=== PATIENT | female | born 1955 | race American Indian/Alaskan Native ===

== ENCOUNTER 2019-09-30 15:06 | Emergency (ER) | payer MEDICARE ==
--- NOTE | 2019-09-30 15:27 | Emergency Department Report ---
Blank Doc - Documentation Documentation: 64-year-old female that presents with a trip and fall with headache, facial ab rasions, and left hand pain. Denies any LOC. Denies any neck pain or back pain. This initial assessment/diagnostic orders/clinical plan/treatment(s) is/are subject to change based on patient's health status, clinical progression and re- assessment by fellow clinical providers in the ED. Further treatment and workup at subsequent clinical providers discretion. Patient/guardians urged not to tera pe from the ED as their condition may be serious if not clinically assessed and managed. Initial orders include: 1- Patient sent to [facility] for further evaluation and treatment 2- ct head/face 3- xrays
--- NOTE | 2019-09-30 16:09 | XRay Report ---
LEFT HAND 3 VIEWS INDICATION / CLINICAL INFORMATION: pain s/p fall. COMPARISON: None available. FINDINGS: Cystic change is seen in the lunate. There is advanced degenerative change in the index finger metaca rpophalangeal joint. No other significant skeletal abnormality Signer Name: Les Roblero MD FACPaul Signed: 09/30/2019 4:04 PM Workstation Name: [id number]
[2019-09-30 16:12] VITALS: BP 168/74
--- NOTE | 2019-09-30 16:32 | Cat Scan Report ---
NONENHANCED CT SCAN OF THE HEAD: INDICATION / CLINICAL INFORMATION: 64 years Female; STATUS-POST FALL, NOW WITH HEAD PAIN. NO L.O.C.. TECHNIQUE: Routine CT head without contrast. All CT scans at this location are performed using CT dos e reduction for ALARA by means of automated exposure control. COMPARISON: None. FINDINGS: BRAIN / INTRACRANIAL CONTENTS: No intracranial sequela from the trauma; no scalp hematoma; no air-flu id level from the trauma in the paranasal sinuses: No acute hemorrhage, mass effect, midline shift, hydrocephalus, or acute, large territorial infarct. No chronic infarct or focal atrophy. Mild to moderate cortical involution; periventricular and deep hemispheric low attenuation white matter areas probably due to chronic small vessel disease CRANIOCERVICAL JUNCTION: No significant abnormality. ORBITS: No significant abnormality of visualized orbits. SINUSES / MASTOIDS: Chronic inflammatory changes with mucosal thickening and fluid accumulation in th e left sphenoid sinus ADDITIONAL FINDINGS: None. IMPRESSION: No intracranial sequela from the trauma. Signer Name: Florian Newton MD Signed: 09/30/2019 4:27 PM Workstation Name: [id number]
--- NOTE | 2019-09-30 16:36 | Cat Scan Report ---
CT MAXILLOFACIAL WITHOUT CONTRAST INDICATION / CLINICAL INFORMATION: Trauma. Patient fell sustaining facial injury. Facial pain. TECHNIQUE: All CT scans at this location are performed using CT dose reduction for ALARA by means of automated e xposure control. COMPARISON: None available. FINDINGS: FACIAL BONES: No fracture or other significant abnormality. PARANASAL SINUSES: Mucosal thickening is present in the left sphenoid sinus where an air-fluid level is identified. Paranasal sinuses are otherwise free from inflammatory mucosal disease. Frontal sinuses did not devel op in this individual. NASAL CAVITY: No abnormality. ORBITS: No significant abnormality. Temporal bones: Mastoid air cells are normally and symmetrically pneumatized as are the middle ear ca vities.. VISUALIZED INTRACRANIAL STRUCTURES: No significant abnormality. Additional abnormality: Periapical cyst is observed at the root of the left incisor of the maxilla. IMPRESSION: 1. No indication of fracture or other osseous abnormality. 2. Inflammatory changes are present in the left sphenoid sinus. Signer Name: Timbo Gaston MD Signed: 09/30/2019 4:31 PM Workstation Name: [id number]
--- NOTE | 2019-09-30 17:37 | Emergency Department Report ---
ED Fall HPI - General Chief Complaint: Fall Stated Complaint: GROUND LEVEL FALL Time Seen by Provider: 09/30/19 15:26 Source: patient Mode of arrival: Wheelchair Limitations: No Limitations - History of Present Illness Initial Comments: This is a 64-year-old female who presents to the emergency room with a laceration to the left upper eyebrow, left-sided facial pain, and left hand pain status post fall. Patient states she was walking in the shop and pleasant did not see speedball when she tripped and fell. Patient states she fell with her left hand stretched out and her legs went behind her. She denies loss of consciousness, nausea, vomiting, visual changes, numbness or tingling, radiating pain, or bruising. MD Complaint: fall -: This afternoon Fall From: standing When Fall Occurred: 1-3 hours [employer] [employer] [employer] Fall Witnessed: yes, by bystander Place Fall Occurred: street Loss of Consciousness: none Prolonged Down Time?: no Symptoms Prior to Fall: none Location: face Location - Extremities: Left: Hand Severity: severe Severity scale (0 -10): 9 Quality: aching Context: tripped/slipped Associated Symptoms: denies - Related Data Allergies Allergy/AdvReac Type Severity Reaction Status Date / Time No Known Allergies Allergy Unverified 09/30/19 16:12 ED Review of Systems ROS: Stated complaint: GROUND LEVEL FALL Other details as noted in HPI Constitutional: denies: chills, fever Respiratory: denies: cough, shortness of breath, wheezing Cardiovascular: denies: chest pain, palpitations Gastrointestinal: denies: abdominal pain, nausea, diarrhea Musculoskeletal: arthralgia (Left hand pain). denies: back pain, joint swelling Skin: lesions (Laceration to left eyebrow). denies: rash Neurological: denies: headache, weakness, paresthesias Psychiatric: denies: anxiety, depression ED Past Medical Hx - Past Medical History Previous Medical History?: No - Surgical History Past Surgical History?: No - Social History Smoking Status: Never Smoker Substance Use Type: None ED Physical Exam - General Limitations: No Limitations General appearance: alert, in no apparent distress - ENT ENT exam: Present: mucous membranes moist - Neck Neck exam: Present: normal inspection - Respiratory Respiratory exam: Present: normal lung sounds bilaterally. Absent: respiratory distress - Cardiovascular Cardiovascular Exam: Present: regular rate, normal rhythm. Absent: systolic murmur, diastolic murmur, rubs, gallop - GI/Abdominal GI/Abdominal exam: Present: soft, normal bowel sounds. Absent: distended, tenderness, guarding, rebound, rigid - Extremities Exam Extremities exam: Present: normal inspection - Expanded Upper Extremity Exam Left Shoulder Exam: Present: normal inspection, full ROM Upper Arm exam: Present: normal inspection, full ROM Elbow exam: Present: normal inspection, full ROM Forearm Wrist exam: Present: normal inspection, full ROM Hand Wrist exam: Present: full ROM (Pain with FROM), tenderness (Tenderness and swelling over fourth and fifth metacarpal), swelling. Absent: abrasion, laceration, ecchymosis, deformity, crepidus, dislocation, erythema, amputation, nail avulsion, subungual hematoma Neuro motor exam: Present: wrist extension intact, thumb opposition intact, thumb IP flexion intact, thumb adduction intact, fingers 2-5 abduction intact Neurosensory exam: Present: radial nerve intact, ulnar nerve intact, median nerve intact Vascular: Present: normal capillary refill (Brisk), radial pulse (2+) - Neurological Exam Neurological exam: Present: alert, oriented X3, normal gait - Psychiatric Psychiatric exam: Present: normal affect, normal mood - Skin Skin exam: Present: warm, dry, normal color, other (1.5 cm laceration to left eyebrow into epidermis dermis, TTP, no drainage, mild swelling). Absent: intact, rash ED Course Vital Signs 09/30/19 16:10 Temperature 97.8 F Pulse Rate 88 Respiratory 18 Rate Blood Pressure 168/74 O2 Sat by Pulse 100 Oximetry ED Medical Decision Making - Radiology Data Radiology results: report reviewed CT MAXILLOFACIAL WITHOUT CONTRAST INDICATION / CLINICAL INFORMATION: Trauma. Patient fell sustaining facial injury. Facial pain. TECHNIQUE: All CT scans at this location are performed using CT dose reduction for ALARA by means of automated exposure control. COMPARISON: None available. FINDINGS: FACIAL BONES: No fracture or other significant abnormality. PARANASAL SINUSES: Mucosal thickening is present in the left sphenoid sinus where an air-fluid level is identified. Paranasal sinuses are otherwise free from inflammatory mucosal disease. Frontal sinuses did not develop in this individual. NASAL CAVITY: No abnormality. ORBITS: No significant abnormality. Temporal bones: Mastoid air cells are normally and symmetrically pneumatized as are the middle ear cavities.. VISUALIZED INTRACRANIAL STRUCTURES: No significant abnormality. Additional abnormality: Periapical cyst is observed at the root of the left incisor of the maxilla. IMPRESSION: 1. No indication of fracture or other osseous abnormality. 2. Inflammatory changes are present in the left sphenoid sinus. NONENHANCED CT SCAN OF THE HEAD: INDICATION / CLINICAL INFORMATION: 64 years Female; STATUS-POST FALL, NOW WITH HEAD PAIN. NO L.O.C.. TECHNIQUE: Routine CT head without contrast. All CT scans at this location are performed using CT dose reduction for ALARA by means of automated exposure control. COMPARISON: None. FINDINGS: BRAIN / INTRACRANIAL CONTENTS: No intracranial sequela from the trauma; no scalp hematoma; no air- fluid level from the trauma in the paranasal sinuses: No acute hemorrhage, mass effect, midline shift, hydrocephalus, or acute, large territorial infarct. No chronic infarct or focal atrophy. Mild to moderate cortical involution; periventricular and deep hemispheric low attenuation white matter areas probably due to chronic small vessel disease CRANIOCERVICAL JUNCTION: No significant abnormality. ORBITS: No significant abnormality of visualized orbits. SINUSES / MASTOIDS: Chronic inflammatory changes with mucosal thickening and fluid accumulation in the left sphenoid sinus ADDITIONAL FINDINGS: None. IMPRESSION: No intracranial sequela from the trauma. LEFT HAND 3 VIEWS INDICATION / CLINICAL INFORMATION: pain s/p fall. COMPARISON: None available. FINDINGS: Cystic change is seen in the lunate. There is advanced degenerative change in the index finger metacarpophalangeal joint. No other significant skeletal abnormality - Medical Decision Making 64-year-old female complaining of laceration to left eyebrow and left hand pain status post fall. Patient was examined by me. Patient is nontoxic appearing and stable. Vitals are normal. Obtained CT of maxillofacial, CT of head, and x-ray of left hand. CT of maxillofacial findings of no indication of fracture or other osseous abnormality. Inflammatory changes are present in the left sphenoid sinus. No intracranial sequela from the trauma. Left hand Cystic change is seen in the lunate. There is advanced degenerative change in the index finger metacarpophalangeal joint. No other significant skeletal abnormality. Given history, exam, and work-up, there is low suspicion for skull fracture, spine fracture, or other acute spinal syndrome. No abdominal or midline spinal tenderness on exam for signs of trauma. Laceration cleaned with normal saline and triple antibiotic ointment applied. A wrist brace was applied to left upper extremity. Patient instructed of symptoms being self-limiting. Instructed to follow-up with her primary care doctor in 2 to 3 days. Given strict return her precautions for delayed possible symptoms. Patient discharged with prompt follow-up with primary care physician. Critical care attestation.: If time is entered above; I have spent that time in minutes in the direct care of this critically ill patient, excluding procedure time. ED Disposition Clinical Impression: Pain in left hand Fall Qualifiers: Encounter type: initial encounter Qualified Code(s): W19.XXXA - Unspecified fall, initial encounter Laceration of left eyebrow without complication Qualifiers: Encounter type: initial encounter Qualified Code(s): S01.112A - Laceration without foreign body of left eyelid and periocular area, initial encounter Sprain of hand, left Qualifiers: Encounter type: initial encounter Qualified Code(s): S63.92XA - Sprain of unspecified part of left wrist and hand, initial encounter Disposition: DC- TO HOME OR SELFCARE Is pt being admited?: No Condition: Stable Instructions: Hand Sprain (ED), Laceration (ED) Additional Instructions: Keep laceration clean with soap and water. Apply ice to left side of face and hand to decrease swelling. Take Tylenol or ibuprofen for pain every 6-8 hours as needed. Follow-up with your primary care doctor. Referrals: MARTÍN ALEX DO [Staff Physician] - 3-5 Days SUDHA FLORES MD [Staff Physician] - 3-5 Days Time of Disposition: 18:34
[2019-09-30] MEDS ORDERED: NEOMY 3.5 MG/BACIT 400 UNITS/POLY B 5000 UNITS/GM OINT PACKET TP ONE (17:51)
== END 2019-09-30 18:41 | disposition home or self-care (01) ==
LOC: ED 15:06
DX: S63.92XA Sprain of unspecified part of left wrist and hand, initial encounter (principal); S01.112A Laceration without foreign body of left eyelid and periocular area, initial encounter; W01.0XXA Fall on same level from slipping, tripping and stumbling without subsequent striking against object, initial encounter; Y93.89 Activity, other specified; Y92.513 Shop (commercial) as the place of occurrence of the external cause; Y99.8 Other external cause status
CPT/HCPCS: 70450; 70486; A6250

== ENCOUNTER 2020-01-01 11:45 | Outpatient (CLI) | payer BC, MEDICARE ==
[2020-01-01 12:18] LABS: Basophils # (Auto) 0.1 K/mm3 (0.0-0.1); Eosinophils # (Auto) 0.2 K/mm3 (0.0-0.4); Eosinophils % (Auto) 2.7 % (0.0-4.3); Hemoglobin 12.5 gm/dl (10.1-14.3); Lymphocytes # (Auto) 1.9 K/mm3 (1.2-5.4); Lymphocytes % (Auto) 31.7 % (13.4-35.0); Mean Corpuscular HGB Conc 33 % (30-34); Mean Corpuscular Volume 96 fl (79-97); Monocytes # (Auto) 0.4 K/mm3 (0.0-0.8); Monocytes % (Auto) 6.5 % (0.0-7.3); Platelet Count 458 K/mm3 (140-440); Red Blood Count 3.97 M/mm3 (3.65-5.03); Red Cell Distribution Width 13.8 % (13.2-15.2)
[2020-01-01 12:31] LABS: Alanine Aminotransferase 17 units/L (7-56); Albumin 4.3 g/dL (3.9-5); BUN/Creatinine Ratio 22; Blood Urea Nitrogen 13 mg/dL (7-17); Calcium 9.8 mg/dL (8.4-10.2); Chol/HDL Ratio 2.47 %; HDL Cholesterol 53 mg/dL (40-59); Hemolysis Index 6; LDL Cholesterol,Direct 72 mg/dL (50-130)
[2020-01-05 13:39] LABS: Vitamin D, 25-OH, D2 <4 ng/mL
== END 2020-01-01 11:46 | disposition home or self-care (01) ==
LOC: LAB 11:45
PROVIDERS: ATTEND Internal Medicine
DX: Z00.00 Encounter for general adult medical examination without abnormal findings (principal); E11.9 Type 2 diabetes mellitus without complications; E78.5 Hyperlipidemia, unspecified; I10 Essential (primary) hypertension; Z13.29 Encounter for screening for other suspected endocrine disorder; E56.9 Vitamin deficiency, unspecified
CPT/HCPCS: 36415; 80053; 80061; 82306; 82607; 83036; 84443; 85025

== ENCOUNTER 2021-04-28 10:25 | Outpatient (CLI) | payer MEDICARE ==
[2021-04-28 11:12] LABS: Bacteria,Urine 1+ /HPF (Negative); Bilirubin,Urine NEG (Negative); Blood,Urine NEG (Negative); Color,Urine Yellow (Yellow); Mucus,Urine FEW /HPF; Protein,Urine <15 mg/dL mg/dL (Negative); Urobilinogen,Urine < 2.0 mg/dL (<2.0)
[2021-04-28 11:13] LABS: Alanine Aminotransferase 13 units/L (7-56); Albumin 4.1 g/dL (3.9-5); Blood Urea Nitrogen 10 mg/dL (7-17); Calcium 9.2 mg/dL (8.4-10.2); Chol/HDL Ratio 3.19 %; HDL Cholesterol 57 mg/dL (40-59); Hemolysis Index 7; LDL Cholesterol,Direct 114 mg/dL (50-130)
[2021-04-28 11:14] LABS: BUN/Creatinine Ratio 17; Basophils % (Auto) 0.8 % (0.0-1.8); Eosinophils # (Auto) 0.1 K/mm3 (0.0-0.4); Eosinophils % (Auto) 2.3 % (0.0-4.3); Hematocrit 36.5 % (30.3-42.9); Hemoglobin 12.1 gm/dl (10.1-14.3); Lymphocytes # (Auto) 1.7 K/mm3 (1.2-5.4); Lymphocytes % (Auto) 31.3 % (13.4-35.0); Mean Corpuscular HGB Conc 33 % (30-34); Mean Corpuscular Volume 91 fl (79-97); Monocytes # (Auto) 0.4 K/mm3 (0.0-0.8); Monocytes % (Auto) 6.6 % (0.0-7.3); Platelet Count 462 K/mm3 (140-440); Red Blood Count 4.03 M/mm3 (3.65-5.03); Red Cell Distribution Width 14.7 % (13.2-15.2)
[2021-04-28 12:32] LABS: Creatinine,Urine 71.5 mg/dL (0.1-20.0)
[2021-04-28 12:41] LABS: Microalbumin/Creatinine Ratio 41.9 ug/mg
[2021-05-01 12:23] LABS: Vitamin D, 25-OH, D2 <4 ng/mL
== END 2021-04-28 10:26 | disposition home or self-care (01) ==
LOC: LAB 10:25
PROVIDERS: ATTEND Internal Medicine
DX: Z13.29 Encounter for screening for other suspected endocrine disorder (principal); Z00.00 Encounter for general adult medical examination without abnormal findings; E11.9 Type 2 diabetes mellitus without complications; E78.5 Hyperlipidemia, unspecified; N39.0 Urinary tract infection, site not specified; E55.9 Vitamin D deficiency, unspecified; I10 Essential (primary) hypertension
CPT/HCPCS: 36415; 80053; 80061; 81001; 82043; 82306; 83036; 84443; 85025

== ENCOUNTER 2021-09-20 12:22 | Outpatient (CLI) | payer MEDICARE | END 2021-09-20 12:23 | disposition home or self-care (01) | LOC: LAB 12:22 | PROVIDERS: ATTEND Internal Medicine | DX: E11.9 Type 2 diabetes mellitus without complications (principal); E78.5 Hyperlipidemia, unspecified | CPT/HCPCS: 36415; 83036 ==